=== PATIENT | female | born 1955 | race Caucasian/White ===

== ENCOUNTER 2021-02-19 18:43 | Emergency (ER) | payer MEDICARE, OTHER ==
--- OUTSIDE RECORDS SUMMARY | 2021-02-19 18:45 | EXTERNAL MEDICAL SUMMARY RPT | Continuity of Care Document ---
:1955 Demographics Phone Unavailable Preferred Language Ukrainian Marital Status Unknown Buddhism Affiliation Unknown Race Unknown Ethnic Group Unknown Author Organization [place] Address [address] [phone] Phone Care Team Providers Name Role Phone [place] Unavailable Unavailable Procedures date description facility 20201223 [facility] Vital Signs date measurement value source 20201223 weight_standard 124.74 lb 20201223 weight_metric 56.58 kg 20201223 temperature_standard 96.3 F 20201223 temperature_metric 35.72 C 20201223 respiration_rate 20 /min 20201223 height_standard 68 in 20201223 height_metric 172.72 cm 20201223 heart_rate 72 /min 20201223 BP_systolic 121 mm[Hg] 20201223 BP_diastolic 74 mm[Hg] 20201223 BMI 41.8 kg/m2
--- OUTSIDE RECORDS SUMMARY | 2021-02-19 19:22 | EXTERNAL MEDICAL SUMMARY RPT | Continuity of Care Document ---
:1955 Demographics Phone Unavailable Preferred Language Upper Sorbian Marital Status Unknown Shinto Affiliation Unknown Race Unknown Ethnic Group Unknown Author Organization [place] Address [address] [phone] Phone Care Team Providers Name Role Phone [place] Unavailable Unavailable Procedures date description facility 20201223 [facility] Vital Signs date measurement value source 20201223 weight_standard 124.74 lb 20201223 weight_metric 56.58 kg 20201223 temperature_standard 96.3 F 20201223 temperature_metric 35.72 C 20201223 respiration_rate 20 /min 20201223 height_standard 68 in 20201223 height_metric 172.72 cm 20201223 heart_rate 72 /min 20201223 BP_systolic 121 mm[Hg] 20201223 BP_diastolic 74 mm[Hg] 20201223 BMI 41.8 kg/m2
[2021-02-19 19:27] LABS: BASOPHILS # (AUTO) 0.1 10^3/uL (0.0-0.1); BASOPHILS % (AUTO) 0.7 %; EOSINOPHILS # (AUTO) 0.2 10^3/uL (0.0-0.7); HCT - HEMATOCRIT 38.6 % (37.0-47.0); HGB - HEMOGLOBIN 12.5 g/dL (12.0-16.0); LYMPHOCYTES # (AUTO) 1.9 10^3/uL (1.5-3.5); MEAN CORPUSCULAR HEMOGLOBIN 30.6 pg (27.0-31.0); MEAN CORPUSCULAR HGB CONC 32.4 g/dL (32.0-36.0); MEAN CORPUSCULAR VOLUME 94.6 fL (81.0-99.0); MEAN PLATELET VOLUME 9.5 fL (7.9-10.8); MONOCYTES # (AUTO) 0.6 10^3/uL (0.0-1.0); MONOCYTES % (AUTO) 7.1 %; NEUTROPHILS # (AUTO) 5.8 10^3/uL (1.5-6.6); NEUTROPHILS % (AUTO) 67.6 %; PLT - PLATELET COUNT 255 10^3/uL (130-450); RED BLOOD COUNT 4.08 10^6/uL (4.20-5.40); WHITE BLOOD COUNT 8.6 x10^3/uL (4.8-10.8)
[2021-02-19] MEDS ORDERED: IOVERSOL 320 100 ML VIAL IVP ONE ×2 (19:31→21:19)
--- NOTE | 2021-02-19 19:38 | ED Physician Documentation ---
History of Present Illness - Stated complaint Stated Complaint: FEMALE - Chief complaint Chief Complaint: Abd Pain - Additonal information Additional information: 65-year-old female presents the emergency department for evaluation of 2 weeks constipation. She reports that she last had a bowel movement sometime between 2 and 3 weeks ago. She has the sensation of needing to defecate but is unable to do so. She feels like she wants to did get out with a spoon. She has some generalized abdominal discomfort but no fevers, vomiting. No history of previous constipation. She does take Lyrica for chronic hip pain. Patient has taken Colace, Dulcolax as well as Ex-Lax over the last few days without relief of symptoms. She is also tried increasing her water intake. She has been dieting recently in an effort to lose 50 pounds in order so that she may undergo bilateral hip replacement. However she denies that she has changed her diet in the last 3 months. Reports colonoscopy at 59 years of age without any adventitious findings. Review of Systems Constitutional: denies: Fever, Chills Eyes: reports: Reviewed and negative Ears: reports: Reviewed and negative Nose: reports: Reviewed and negative Throat: reports: Reviewed and negative Cardiac: reports: Reviewed and negative Respiratory: reports: Reviewed and negative GI: reports: Abdominal Pain, Constipation. 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 - Present Medications Home Medications: Ambulatory Orders Medication Instructions Recorded Confirmed Albuterol Sulfate 1.25 mg INH Q4HR PRN 03/09/14 02/19/21 Bupropion HCl [Wellbutrin] 450 mg PO DAILY 03/09/14 02/19/21 Calcium Carb, Citrate/Vit D3 1 tab PO DAILY 03/09/14 02/19/21 [Calcium + D3 ER Tablet] Cetirizine HCl [Zyrtec] 10 mg PO DAILY 03/09/14 02/19/21 Fluticasone [Flonase] 2 spr MARIELLE DAILY 03/09/14 02/19/21 Fluticasone/Salmeterol 100/50 2 puffs INH BID 03/09/14 02/19/21 [Advair 100 Mcg/50 Mcg] Montelukast Sodium [Singulair] 10 mg PO DAILY 03/09/14 02/19/21 Acetaminophen [Aphen] 650 mg PO BID 02/19/21 02/19/21 Amox/Clav 875/125 [Augmentin] 1 each PO Q12H #20 tablet 02/19/21 Aspirin [[place] Aspirin] 81 mg PO DAILY 02/19/21 02/19/21 Flecainide [Tambocar] 50 mg PO BID 02/19/21 02/19/21 Meclizine [Antivert] 12.5 mg PO TID 02/19/21 02/19/21 Omeprazole Magnesium 40 mg PO BID 02/19/21 02/19/21 Pregabalin [Lyrica] 25 mg PO BID 02/19/21 02/19/21 Telmisartan [Micardis] 20 mg PO DAILY 02/19/21 02/19/21 Trazodone HCl 200 mg PO HS 02/19/21 02/19/21 Vortioxetine Hydrobromide 5 mg PO DAILY 02/19/21 02/19/21 [Trintellix] dilTIAZem HCL [Diltiazem 24Hr ER 120 mg PO DAILY 02/19/21 02/19/21 (Xr)] polyethylene glycoL 3350 [Miralax] 17 gm PO DAILY PRN #1 bottle 02/19/21 - Allergies Allergies/Adverse Reactions: Allergies Allergy/AdvReac Type Severity Reaction Status Date / Time Sulfa (Sulfonamide Allergy Respiratory Verified 02/19/21 18:56 Antibiotics) - Social History Does the pt smoke?: No Smoking Status: Never smoker Does the pt drink ETOH?: No Does the pt have substance abuse?: No PD ED PE EXPANDED - General General: Alert, No acute distress, Other (Obese) - Cardiac Cardiac: Regular Rate, Radial strong equal, Pedal strong equal, Cap refill < 2 sec - Respiratory Respiratory: Clear to ausultation jenny. No: Distress, Labored - Abdomen Abdomen: Normal Bowel sounds, Distended. No: Tender to palpation - Rectal Rectal: Normal Tone, Mule Spinner present, Other (Digital rectal exam reveals a large amount of formed hard stool within the vault. Some rectal disimpaction was achieved at the bedside removing about baseball sized amount of stool. This was well-tolerated by patient.) - Derm Derm: Normal color, Warm and dry - Neuro Neuro: Alert and Oriented X 3, CNII-XII intact - GCS Eye Opening: Spontaneous Motor: Obeys Commands Verbal: Oriented Total: 15 Results - Vitals Vitals: Vital Signs - 24 hr 02/19/21 02/19/21 02/19/21 18:52 19:27 21:00 Temperature 36.3 C L 36.6 C Heart Rate 76 70 71 Respiratory 18 16 Rate Blood Pressure 137/63 H 164/84 H 134/98 H O2 Saturation 98 99 98 Oxygen O2 Source Room air - Labs Labs: Laboratory Tests 02/19/21 02/19/21 02/19/21 19:17 19:17 20:40 WBC 8.6 RBC 4.08 L Hgb 12.5 Hct 38.6 MCV 94.6 MCH 30.6 MCHC 32.4 RDW 15.0 Plt Count 255 MPV 9.5 Neut # (Auto) 5.8 Lymph # (Auto) 1.9 [place] # (Auto) 0.6 Eos # (Auto) 0.2 Baso # (Auto) 0.1 Absolute Nucleated RBC 0.00 Nucleated RBC % 0.0 Sodium 140 Potassium 3.6 Chloride 105 Carbon Dioxide 26 Anion Gap 9.0 BUN 17 Creatinine 1.2 H Estimated GFR (MDRD) 45 L Glucose 95 Calcium 9.8 Total Bilirubin 0.7 AST 14 ALT 17 Alkaline Phosphatase 92 Total Protein 7.4 Albumin 4.1 Globulin 3.3 Albumin/Globulin Ratio 1.2 Lipase 18 L Urine Color YELLOW Urine Clarity CLEAR Urine pH 6.0 Ur Specific [place] 1.010 Urine Protein NEGATIVE Urine Glucose (UA) NEGATIVE Urine Ketones NEGATIVE Urine Occult Blood NEGATIVE Urine Nitrite NEGATIVE Urine Bilirubin NEGATIVE Urine Urobilinogen 0.2 (NORMAL) Ur Leukocyte Esterase NEGATIVE Ur Microscopic Review NOT INDICATED Urine Culture Comments NOT INDICATED - Rads (name of study) CT abd Radiology: Final report received (Mild colonic wall thickening in the rect osigmoid colon compatible with a nonspecific proctocolitis) PD MEDICAL DECISION MAKING - ED course Complexity details: reviewed results, re-evaluated patient, considered differential, d/w patient, d/w family ED course: 65-year-old female presents the emergency department for evaluation of 2 weeks constipation. This is sudden onset not associated with fevers focal abdominal pain or vomiting. At the bedside I did do a digital rectal exam and was able to disimpact a baseball sized amount of stool. Screening labs show no acute worrisome abnormalities. A CT of her abdomen was completed and it does suggest rectal proctocolitis. For this reason she will be started on a course of Augmentin. For her constipation she was given an enema in the emergency department with little relief of symptoms. I will write a prescription for MiraLAX and recommend that she take 2-3 times daily until she has 4-5 watery stools. I have advised very close follow-up with her primary care doctor. She should be referred for repeat colonoscopy for further evaluation of the new onset constipation. Clinically she is not have an exam consistent with a bowel obstruction. Emergent return precautions were discussed. Departure - Departure Disposition: Home, Self Care Clinical Impression: Proctocolitis Constipation Qualifiers: Constipation type: other constipation type Qualified Code(s): K59.09 - Other constipation Condition: Stable Record reviewed to determine appropriate education?: Yes Instructions: ED Constipation Follow-Up: Provider,Other [Primary Care Provider] - Prescriptions: Amox/Clav 875/125 [Augmentin] 1 each PO Q12H #20 tablet polyethylene glycoL 3350 [Miralax] 17 gm PO DAILY PRN #1 bottle PRN Reason: Constipation Comments: Tete you were seen in the emergency department today for evaluation of constipation in which she reported no bowel movement for about 2 weeks. Your screening labs are all essentially unremarkable. We did do a CAT scan of your abdomen and it does show some colonic wall thickening that may be early colitis. For this reason I would like you to fill the prescription for the Augmentin and begin taking twice daily. For your constipation I recommend that you take the MiraLAX twice daily until you have 3-5 watery stools. Although the CAT scan did not show any obvious reason for your constipation acute constipation like this is unusual. I do recommend that you increase your water intake however it is important that you discuss this ED visit with your primary care provider. You should be referred for a repeat colonoscopy to make sure that there is nothing within the colon causing the constipation that we did not see on CAT scan. Please return to the emergency department if the MiraLAX fails to produce a bowel movement over the next 4 to 5 days, you develop any fevers, uncontrolled vomiting or suddenly severe abdominal pain
[2021-02-19 19:39] LABS: ALBUMIN 4.1 g/dL (3.2-5.5); ALBUMIN/GLOBULIN RATIO 1.2 (1.0-2.2); BILIRUBIN,TOTAL 0.7 mg/dL (0.2-1.0); CALCIUM 9.8 mg/dL (8.5-10.3); CREATININE 1.2 mg/dL (0.4-1.0); POTASSIUM 3.6 mmol/L (3.5-5.0); TOTAL PROTEIN 7.4 g/dL (6.7-8.2)
[2021-02-19 20:52] LABS: BILIRUBIN,URINE NEGATIVE (NEGATIVE); CLARITY,URINE CLEAR (CLEAR); GLUCOSE, URINE (UA) NEGATIVE (NEGATIVE); KETONES,URINE (UA) NEGATIVE (NEGATIVE); LEUKOCYTE ESTERASE, URINE NEGATIVE (NEGATIVE); NITRITE,URINE NEGATIVE (NEGATIVE); OCCULT BLOOD,URINE NEGATIVE (NEGATIVE); PROTEIN,URINE NEGATIVE (NEGATIVE); UROBILINOGEN,URINE 0.2 (NORMAL) E.U./dL (NORMAL)
[2021-02-19] MEDS ORDERED: MINERAL OIL ENEMA 133 ML BOTTLE RC STA (20:55)
--- NOTE | 2021-02-19 21:10 | CT Report ---
PROCEDURE: Abdomen/Pelvis W INDICATIONS: Abdominal pain, acute, nonlocalized CONTRAST: IV CONTRAST: Optiray 320 ml: 100 PO CONTRAST: *NO PO CONTRAST TECHNIQUE: After the administration of intravenous contrast, 5 mm thick sections acquired from the diaphragms to the symphysis. 5 mm thick coronal and sagittal reformats were acquired. For radiation dose reducti on, the following was used: automated exposure control, adjustment of mA and/or kV according to ben ent size. COMPARISON: None. FINDINGS: Image quality: Excellent. ABDOMEN: Lung bases: There is mild dependent atelectasis. Heart size is normal. Solid organs: Evaluation of the liver demonstrates no focal hepatic lesions. Gallbladder is surgical ly absent. Biliary system is non dilated. The spleen is normal in size. No peripancreatic fat strand ing or fluid collections. No adrenal nodules. Kidneys demonstrate no hydronephrosis. Peritoneum and bowel: Small bowel loops demonstrate normal wall thickness and caliber. No pericecal inflammatory changes to suggest appendicitis. There is mild wall thickening in the rectosigmoid colon with minimal pericolonic fat stranding. No free fluid or air. Nodes and vessels: No retroperitoneal or mesenteric adenopathy by size criteria. Aorta and inferior vena cava are normal in size. Miscellaneous: No ventral hernias. PELVIS: Genitourinary: Bladder wall thickness is normal. The uterus is surgically absent. Miscellaneous: No inguinal hernias or adenopathy. Bones: No suspicious bony lesions. No vertebral body compression fractures. IMPRESSION: 1. Mild colonic wall thickening in the rectal sigmoid colon compatible with a nonspecific proctocolit is. Reviewed by: Broyd Kowalski MD on 02/19/2021 9:09 PM PDT Approved by: Brody Kowalski MD on 02/19/2021 9:09 PM PDT Station ID: [id number]
[2021-02-19 21:13] VITALS: BP 134/98
== END 2021-02-19 22:10 | disposition home or self-care (01) ==
LOC: ED 18:43
DX: K52.9 Noninfective gastroenteritis and colitis, unspecified (principal); K59.09 Other constipation
CPT/HCPCS: 36415; 74177; 80053; 81003; 83690; 85025; 99284; A9270; Q9967; 81001; 87086

== ENCOUNTER 2021-02-24 10:37 | Emergency (ER) | payer MEDICARE, OTHER ==
--- OUTSIDE RECORDS SUMMARY | 2021-02-24 10:40 | EXTERNAL MEDICAL SUMMARY RPT | Continuity of Care Document ---
:1955 Demographics Phone Unavailable Preferred Language Maltese Marital Status Unknown Taoist Affiliation Unknown Race Unknown Ethnic Group Unknown Author Organization [place] Address [address] [phone] Phone Care Team Providers Name Role Phone [place] Unavailable Unavailable Procedures date description facility 20201223 [facility] Vital Signs date measurement value source 20201223 weight_standard 124.74 lb 20201223 weight_metric 56.58 kg 20201223 temperature_standard 96.3 F 20201223 temperature_metric 35.72 C 20201223 respiration_rate 20 /min 20201223 height_standard 68 in 20201223 height_metric 172.72 cm 20201223 heart_rate 72 /min 20201223 BP_systolic 121 mm[Hg] 20201223 BP_diastolic 74 mm[Hg] 20201223 BMI 41.8 kg/m2
[2021-02-24 11:01] VITALS: BP 123/62
--- OUTSIDE RECORDS SUMMARY | 2021-02-24 11:18 | EXTERNAL MEDICAL SUMMARY RPT | Continuity of Care Document ---
:1955 Demographics Phone Unavailable Preferred Language Kazakh Marital Status Unknown Confucianist Affiliation Unknown Race Unknown Ethnic Group Unknown Author Organization [place] Address [address] [phone] Phone Care Team Providers Name Role Phone Luois Luu Unavailable Unavailable Procedures date description facility 20201223 [facility] Vital Signs date measurement value source 20201223 weight_standard 124.74 lb 20201223 weight_metric 56.58 kg 20201223 temperature_standard 96.3 F 20201223 temperature_metric 35.72 C 20201223 respiration_rate 20 /min 20201223 height_standard 68 in 20201223 height_metric 172.72 cm 20201223 heart_rate 72 /min 20201223 BP_systolic 121 mm[Hg] 20201223 BP_diastolic 74 mm[Hg] 20201223 BMI 41.8 kg/m2
[2021-02-24 11:41] LABS: BASOPHILS % (AUTO) 0.5 %; EOSINOPHILS # (AUTO) 0.1 10^3/uL (0.0-0.7); EOSINOPHILS % (AUTO) 1.7 %; HCT - HEMATOCRIT 41.2 % (37.0-47.0); LYMPHOCYTES # (AUTO) 1.2 10^3/uL (1.5-3.5); LYMPHOCYTES % (AUTO) 20.1 %; MEAN CORPUSCULAR HEMOGLOBIN 30.2 pg (27.0-31.0); MEAN CORPUSCULAR HGB CONC 31.6 g/dL (32.0-36.0); MEAN CORPUSCULAR VOLUME 95.6 fL (81.0-99.0); MEAN PLATELET VOLUME 9.4 fL (7.9-10.8); MONOCYTES # (AUTO) 0.5 10^3/uL (0.0-1.0); MONOCYTES % (AUTO) 7.8 %; NEUTROPHILS # (AUTO) 4.1 10^3/uL (1.5-6.6); NEUTROPHILS % (AUTO) 69.4 %; PLT - PLATELET COUNT 241 10^3/uL (130-450); RED BLOOD COUNT 4.31 10^6/uL (4.20-5.40); WHITE BLOOD COUNT 5.9 x10^3/uL (4.8-10.8)
[2021-02-24 11:54] LABS: ALBUMIN 4.2 g/dL (3.2-5.5); ALBUMIN/GLOBULIN RATIO 1.4 (1.0-2.2); BILIRUBIN,TOTAL 0.5 mg/dL (0.2-1.0); CALCIUM 10.2 mg/dL (8.5-10.3); CREATININE 1.1 mg/dL (0.4-1.0); POTASSIUM 4.3 mmol/L (3.5-5.0); TOTAL PROTEIN 7.3 g/dL (6.7-8.2)
[2021-02-24 12:31] LABS: BILIRUBIN,URINE NEGATIVE (NEGATIVE); GLUCOSE, URINE (UA) NEGATIVE (NEGATIVE); KETONES,URINE (UA) NEGATIVE (NEGATIVE); LEUKOCYTE ESTERASE, URINE NEGATIVE (NEGATIVE); NITRITE,URINE NEGATIVE (NEGATIVE); OCCULT BLOOD,URINE NEGATIVE (NEGATIVE); PH,URINE 6.5 PH (5.0-7.5); PROTEIN,URINE NEGATIVE (NEGATIVE); UROBILINOGEN,URINE 0.2 (NORMAL) E.U./dL (NORMAL)
[2021-02-24 12:37] LABS: CLARITY,URINE CLEAR (CLEAR)
[2021-02-24] MEDS ORDERED: SALINE ENEMA 133 ML BOTTLE RC STA (12:50)
--- NOTE | 2021-02-24 13:01 | ED Physician Documentation ---
History of Present Illness - Stated complaint Stated Complaint: FEMALE - Chief complaint Chief Complaint: Abd Pain - Additonal information Additional information: 65-year-old female presents to the emergency department for evaluation of pe rsistent constipation. I saw her on the of this month in which she had reported no bowel movement for nearly 2 weeks. At that time of initial exam I did do a digital rectal exam and did disimpact a baseball sized amount of hard stool. Subsequent labs and imaging did not reveal any significant worrisome abnormalities. I recommended twice daily MiraLAX and follow-up with primary care doctor. Her appointment is scheduled now for 07 March. Since being discharged she reports that she is drink a bottle of magnesium citrate as well as taking MiraLAX twice daily and has had only one small hard bowel movement the day after being seen in the ER. She has had no fevers no vomiting. She has some abdominal discomfort but no focal pain. pt was started on lyrica february 04 for chronic hip pain. pt of dr. hill Review of Systems Constitutional: denies: Fever, Chills Eyes: reports: Reviewed and negative Nose: reports: Reviewed and negative Throat: reports: Reviewed and negative Cardiac: reports: Reviewed and negative Respiratory: reports: Reviewed and negative GI: reports: Constipation. 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 - Present Medications Home Medications: Ambulatory Orders Medication Instructions Recorded Confirmed Albuterol Sulfate 1.25 mg INH Q4HR PRN 03/09/14 02/19/21 Bupropion HCl [Wellbutrin] 450 mg PO DAILY 03/09/14 02/19/21 Calcium Carb, Citrate/Vit D3 1 tab PO DAILY 03/09/14 02/19/21 [Calcium + D3 ER Tablet] Cetirizine HCl [Zyrtec] 10 mg PO DAILY 03/09/14 02/19/21 Fluticasone [Flonase] 2 spr MARIELLE DAILY 03/09/14 02/19/21 Fluticasone/Salmeterol 100/50 2 puffs INH BID 03/09/14 02/19/21 [Advair 100 Mcg/50 Mcg] Montelukast Sodium [Singulair] 10 mg PO DAILY 03/09/14 02/19/21 Acetaminophen [Aphen] 650 mg PO BID 02/19/21 02/19/21 Amox/Clav 875/125 [Augmentin] 1 each PO Q12H #20 tablet 02/19/21 Aspirin [[place] Aspirin] 81 mg PO DAILY 02/19/21 02/19/21 Flecainide [Tambocar] 50 mg PO BID 02/19/21 02/19/21 Meclizine [Antivert] 12.5 mg PO TID 02/19/21 02/19/21 Omeprazole Magnesium 40 mg PO BID 02/19/21 02/19/21 Pregabalin [Lyrica] 25 mg PO BID 02/19/21 02/19/21 Telmisartan [Micardis] 20 mg PO DAILY 02/19/21 02/19/21 Trazodone HCl 200 mg PO HS 02/19/21 02/19/21 Vortioxetine Hydrobromide 5 mg PO DAILY 02/19/21 02/19/21 [Trintellix] dilTIAZem HCL [Diltiazem 24Hr ER 120 mg PO DAILY 02/19/21 02/19/21 (Xr)] polyethylene glycoL 3350 [Miralax] 17 gm PO DAILY PRN #1 bottle 02/19/21 Peg 3350/Na Sulf,Bicarb,Cl/KCl 4,000 ml PO ONCE 1 Days #1 each 02/24/21 [Golytely] - Allergies Allergies/Adverse Reactions: Allergies Allergy/AdvReac Type Severity Reaction Status Date / Time Sulfa (Sulfonamide Allergy Respiratory Verified 02/24/21 11:01 Antibiotics) - Social History Does the pt smoke?: No Smoking Status: Never smoker Does the pt drink ETOH?: No Does the pt have substance abuse?: No PD ED PE EXPANDED - General General: Alert, No acute distress, Well developed/nourished - Cardiac Cardiac: Regular Rate, Radial strong equal, Pedal strong equal, Cap refill < 2 sec - Respiratory Respiratory: Clear to ausultation jenny. No: Distress, Labored - Abdomen Abdomen: Normal Bowel sounds, Tender to palpation (Mild nonfocal generalized tenderness to the abdomen.). No: Suprapubic - Rectal Rectal: Normal Tone (Digital rectal exam reveals no palpable stool in the rectal vault. Generally nontender exam.) - Back Back: Normal exam - Neuro Neuro: Alert and Oriented X 3, CNII-XII intact - GCS Eye Opening: Spontaneous Motor: Obeys Commands Verbal: Oriented Total: 15 - Psych Psych: Normal Results - Vitals Vitals: Vital Signs - 24 hr 02/24/21 10:57 Temperature 36.5 C Heart Rate 80 Respiratory 17 Rate Blood Pressure 123/62 O2 Saturation 99 Oxygen O2 Source Room air - Labs Labs: Laboratory Tests 02/24/21 02/24/21 02/24/21 11:40 11:40 11:40 WBC 5.9 RBC 4.31 Hgb 13.0 Hct 41.2 MCV 95.6 MCH 30.2 MCHC 31.6 L RDW 15.0 Plt Count 241 MPV 9.4 Neut # (Auto) 4.1 Lymph # (Auto) 1.2 L [place] # (Auto) 0.5 Eos # (Auto) 0.1 Baso # (Auto) 0.0 Absolute Nucleated RBC 0.00 Nucleated RBC % 0.0 Sodium 140 Potassium 4.3 Chloride 101 Carbon Dioxide 29 Anion Gap 10.0 BUN 10 Creatinine 1.1 H Estimated GFR (MDRD) 50 L Glucose 104 H Lactic Acid 0.9 Calcium 10.2 Total Bilirubin 0.5 AST 14 ALT 17 Alkaline Phosphatase 98 Total Protein 7.3 Albumin 4.2 Globulin 3.1 Albumin/Globulin Ratio 1.4 Lipase 19 L Urine Color Urine Clarity Urine pH Ur Specific [place] Urine Protein Urine Glucose (UA) Urine Ketones Urine Occult Blood Urine Nitrite Urine Bilirubin Urine Urobilinogen Ur Leukocyte Esterase Ur Microscopic Review Urine Culture Comments 02/24/21 11:45 WBC RBC Hgb Hct MCV MCH MCHC RDW Plt Count MPV Neut # (Auto) Lymph # (Auto) [place] # (Auto) Eos # (Auto) Baso # (Auto) Absolute Nucleated RBC Nucleated RBC % Sodium Potassium Chloride Carbon Dioxide Anion Gap BUN Creatinine Estimated GFR (MDRD) Glucose Lactic Acid Calcium Total Bilirubin AST ALT Alkaline Phosphatase Total Protein Albumin Globulin Albumin/Globulin Ratio Lipase Urine Color YELLOW Urine Clarity CLEAR Urine pH 6.5 Ur Specific [place] 1.010 Urine Protein NEGATIVE Urine Glucose (UA) NEGATIVE Urine Ketones NEGATIVE Urine Occult Blood NEGATIVE Urine Nitrite NEGATIVE Urine Bilirubin NEGATIVE Urine Urobilinogen 0.2 (NORMAL) Ur Leukocyte Esterase NEGATIVE Ur Microscopic Review NOT INDICATED Urine Culture Comments NOT INDICATED PD MEDICAL DECISION MAKING - ED course Complexity details: reviewed results, re-evaluated patient, d/w patient, d/w family ED course: 65-year-old female presents the emergency department for evaluation of chronic constipation that began about 3 weeks ago now. This is in the setting of recently beginning a new medication Lyrica for chronic hip pain. I saw this patient for similar 5 days ago screening labs and CT at that scan did not reveal obstipation. There was a concern for proctocolitis and she was started on Augmentin. Despite taking magnesium citrate as well as MiraLAX twice daily she has had only 1 small bowel movement. She has no fevers or vomiting. Screening labs today reveal no acute worrisome abnormalities. Digital rectal exam did not reveal any stool within the vault. I do suspect at this time that the cause of her worsening constipation is likely the Lyrica that she is prescribed for her chronic hip pain. Patient was given a saline fleets enema here in the emergency department and I will prescribe gallon of GoLYTELY prep at home. She is to continue follow-up with her primary care provider and discuss with worsening constipation with Dr. Clement. Alternative forms of pain management may be indicated. Emergent worsen return precautions were discussed for fevers, suddenly severe abdominal pain melena, or uncontrolled vomiting. Departure - Departure Disposition: 01 Home, Self Care Clinical Impression: Constipation Qualifiers: Constipation type: other constipation type Qualified Code(s): K59.09 - Other constipation Condition: Stable Record reviewed to determine appropriate education?: Yes Instructions: ED Constipation Follow-Up: Rosie Ramirez MD [Physician No Access] - Prescriptions: Peg 3350/Na Sulf,Bicarb,Cl/KCl [Golytely] 4,000 ml PO ONCE 1 Days #1 each Comments: Tete you were seen in the emergency department today for constipation. As we discussed I suspect that the cause your constipation is likely the Lyrica which he began taking for your chronic hip pain. This is a common side effect with Lyrica. In order to help promote healthy bowel movement I have prescribed GoLYTELY and the dose that is typically given to people before they have a colonoscopy. You may benefit from speaking with Dr. Joel about changing your pain management medications or abstaining from the Lyrica for a few days. Reasons to return to the emergency department would include fevers, uncontrolled vomiting, suddenly severe or different abdominal pain or any black or bloody stools.
== END 2021-02-24 14:08 | disposition home or self-care (01) ==
LOC: ED 10:37
DX: K59.09 Other constipation (principal); R10.817 Generalized abdominal tenderness; M25.559 Pain in unspecified hip; G89.29 Other chronic pain; Z79.899 Other long term (current) drug therapy; Z79.82 Long term (current) use of aspirin
CPT/HCPCS: 36415; 80053; 81003; 83605; 83690; 85025; 99283; 99284; A9270; 81001; 87086

== ENCOUNTER 2022-02-05 08:00 | Outpatient (CLI) | payer MEDICARE, OTHER ==
[2022-02-05 20:39] LABS: BILIRUBIN,URINE NEGATIVE (NEGATIVE); GLUCOSE, URINE (UA) NEGATIVE (NEGATIVE); KETONES,URINE (UA) NEGATIVE (NEGATIVE); LEUKOCYTE ESTERASE, URINE TRACE (NEGATIVE); NITRITE,URINE POSITIVE (NEGATIVE); OCCULT BLOOD,URINE NEGATIVE (NEGATIVE); PROTEIN,URINE NEGATIVE (NEGATIVE); UROBILINOGEN,URINE 0.2 (NORMAL) E.U./dL (NORMAL)
[2022-02-05 20:40] LABS: CLARITY,URINE HAZY (CLEAR)
[2022-02-05 21:06] LABS: BACTERIA,URINE Many /HPF (None Seen); RBC,URINE 0-5 /HPF (0-5); SQUAMOUS EPITHELIAL CELL,UR FEW Squamous (<= Few); WBC,URINE >25 /HPF (0-5)
[2022-02-05 21:07] LABS: CRYSTALS,URINE 11-25 Ca Oxalate /LPF
== END 2022-02-05 23:59 | disposition home or self-care (01) ==
LOC: LAB.N 08:00
PROVIDERS: ATTEND Physician Assistant
DX: N39.0 Urinary tract infection, site not specified (principal)
CPT/HCPCS: 81001; 87077; 87086; 87181

== ENCOUNTER 2023-12-31 12:51 | Emergency (ER) | payer MEDICARE, OTHER ==
[2023-12-31 13:18] LABS: BILIRUBIN,URINE MODERATE (NEGATIVE); CLARITY,URINE SL. CLOUDY (CLEAR); GLUCOSE, URINE (UA) NEGATIVE (NEGATIVE); KETONES,URINE (UA) 40 mg/dL (NEGATIVE); LEUKOCYTE ESTERASE, URINE NEGATIVE (NEGATIVE); NITRITE,URINE NEGATIVE (NEGATIVE); OCCULT BLOOD,URINE NEGATIVE (NEGATIVE); PROTEIN,URINE 30 mg/dL (NEGATIVE); UROBILINOGEN,URINE 1 (NORMAL) E.U./dL (NORMAL)
[2023-12-31 13:42] LABS: BACTERIA,URINE Moderate /HPF (None Seen); RBC,URINE None Seen /HPF (0-5); SQUAMOUS EPITHELIAL CELL,UR MANY Squamous (<= Few)
[2023-12-31] MEDS: KETOROLAC 30 MG/ML VIAL IVP STA (13:55)
[2023-12-31 14:01] LABS: BASOPHILS # (AUTO) 0.1 10^3/uL (0.0-0.1); BASOPHILS % (AUTO) 0.5 %; EOSINOPHILS # (AUTO) 0.2 10^3/uL (0.0-0.7); EOSINOPHILS % (AUTO) 2.1 %; HCT - HEMATOCRIT 37.1 % (37.0-47.0); HGB - HEMOGLOBIN 11.7 g/dL (12.0-16.0); LYMPHOCYTES # (AUTO) 1.7 10^3/uL (1.5-3.5); LYMPHOCYTES % (AUTO) 14.9 %; MEAN CORPUSCULAR HEMOGLOBIN 30.5 pg (27.0-31.0); MEAN CORPUSCULAR HGB CONC 31.5 g/dL (32.0-36.0); MEAN CORPUSCULAR VOLUME 96.6 fL (81.0-99.0); MEAN PLATELET VOLUME 9.6 fL (7.9-10.8); MONOCYTES # (AUTO) 0.9 10^3/uL (0.0-1.0); MONOCYTES % (AUTO) 7.9 %; NEUTROPHILS # (AUTO) 8.5 10^3/uL (1.5-6.6); NEUTROPHILS % (AUTO) 74.2 %; PLT - PLATELET COUNT 173 10^3/uL (130-450); RED BLOOD COUNT 3.84 10^6/uL (4.20-5.40); RED CELL DISTRIBUTION WIDTH 13.1 % (12.0-15.0); WHITE BLOOD COUNT 11.4 x10^3/uL (4.8-10.8)
[2023-12-31 14:14] LABS: ALBUMIN 3.6 g/dL (3.2-5.5); ALBUMIN/GLOBULIN RATIO 1.6 (1.0-2.2); ALKALINE PHOSPHATASE 59 IU/L (42-121); ALT ALANINE AMINOTRANSFERASE 5 IU/L (10-60); AST ASPARTATE AMINOTRANSFERASE 8 IU/L (10-42); BILIRUBIN,TOTAL 0.7 mg/dL (0.2-1.0); BUN - BLOOD UREA NITROGEN 13 mg/dL (6-20); CALCIUM 9.8 mg/dL (8.5-10.3); CARBON DIOXIDE - CO2 25 mmol/L (21-32); CHLORIDE 103 mmol/L (101-111); CREATININE 0.8 mg/dL (0.6-1.3); GFR - MDRD 71 (>89); GLUCOSE 93 mg/dL (74-104); LIPASE < 10 U/L (11-82); POTASSIUM 3.7 mmol/L (3.5-4.5); SODIUM 135 mmol/L (135-145); TOTAL PROTEIN 5.9 g/dL (6.4-8.9)
[2023-12-31] MEDS ORDERED: iohexoL-300 100 ML VIAL ONE (14:19)
[2023-12-31] MEDS: SODIUM CHLORIDE 0.9% 1,000 ML IV STA (14:40)
[2023-12-31] MEDS: iohexoL-300 100 ML VIAL IVP ONE (14:43)
--- NOTE | 2023-12-31 14:46 | ED Physician Documentation ---
PD HPI ABD PAIN - Stated complaint Stated Complaint: ABD PX,N/V/D - Chief complaint Chief Complaint: Abd Pain - History obtained from History obtained from: Patient, Family - History of Present Illness Timing - onset: How many weeks ago (3) Timing - duration: Weeks (3) Timing - details: Gradual onset, Still present, Waxing and waning Quality: Cramping, Pain Location: Periumbilical, RLQ, LLQ Improved by: Laying still Worsened by: Moving, Position, Palpation Associated symptoms: Nausea, Vomiting, Diarrhea Similar symptoms before: No diagnosis Recently seen: Not recently seen - Additional information Additional information: Tete Ridley is a 68-year-old female who has developed diarrhea that lasted about 1 week last month. She has subsequently had a return of her diarrhea and this has been now present for as long as 3 weeks. She is having worse symptoms over the past week and she has developed some vomiting as well. She is having some lower abdominal cramping pain and she denies any rectal pain she denies any rectal bleeding or trouble with wiping. She has not had the symptoms previously. She has not had fever. Review of Systems Constitutional: reports: Myalgias, Fatigue, Sweats. denies: Fever Eyes: denies: Decreased vision Ears: denies: Ear pain Nose: denies: Rhinorrhea / runny nose, Congestion Throat: denies: Sore throat Cardiac: denies: Chest pain / pressure, Palpitations Respiratory: denies: Dyspnea, Cough GI: reports: Abdominal Pain, Nausea, Vomiting, Diarrhea : denies: Dysuria, Frequency Skin: denies: Rash Musculoskeletal: denies: Neck pain, Back pain, Extremity pain Neurologic: reports: Generalized weakness. 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 - Present Medications Home Medications: Ambulatory Orders Medication Instructions Recorded Confirmed Albuterol Sulfate 1.25 mg INH Q4HR PRN 03/09/14 02/19/21 Bupropion HCl [Wellbutrin] 450 mg PO DAILY 03/09/14 02/19/21 Calcium Carb, Citrate/Vit D3 1 tab PO DAILY 03/09/14 02/19/21 [Calcium + D3 ER Tablet] Cetirizine HCl [Zyrtec] 10 mg PO DAILY 03/09/14 02/19/21 Fluticasone [Flonase] 2 spr MARIELLE DAILY 03/09/14 02/19/21 Fluticasone/Salmeterol 100/50 2 puffs INH BID 03/09/14 02/19/21 [Advair 100 Mcg/50 Mcg] Montelukast Sodium [Singulair] 10 mg PO DAILY 03/09/14 02/19/21 Acetaminophen [Aphen] 650 mg PO BID 02/19/21 02/19/21 Amox/Clav 875/125 [Augmentin] 1 each PO Q12H #20 tablet 02/19/21 Aspirin [Maury Aspirin] 81 mg PO DAILY 02/19/21 02/19/21 Flecainide [Tambocar] 50 mg PO BID 02/19/21 02/19/21 Meclizine [Antivert] 12.5 mg PO TID 02/19/21 02/19/21 Omeprazole Magnesium 40 mg PO BID 02/19/21 02/19/21 Pregabalin [Lyrica] 25 mg PO BID 02/19/21 02/19/21 Telmisartan [Micardis] 20 mg PO DAILY 02/19/21 02/19/21 Trazodone HCl 200 mg PO HS 02/19/21 02/19/21 Vortioxetine Hydrobromide 5 mg PO DAILY 02/19/21 02/19/21 [Trintellix] dilTIAZem HCL [Diltiazem 24Hr ER 120 mg PO DAILY 02/19/21 02/19/21 (Xr)] polyethylene glycoL 3350(BULK) 17 gm PO DAILY PRN #1 bottle 02/19/21 [Miralax] Peg 3350/Na Sulf,Bicarb,Cl/KCl 4,000 ml PO ONCE 1 Days #1 each 02/24/21 [Golytely] Ciprofloxacin HCl [Cipro] 500 mg PO BID #14 tablet 12/31/23 HYDROcod/ACETAM 5/325 [[place] 5/325] 1 - 2 tablet PO Q6H PRN #14 tablet 12/31/23 metroNIDAZOLE [Flagyl] 500 mg PO BID 7 Days #14 tablet 12/31/23 - Allergies Allergies/Adverse Reactions: Allergies Allergy/AdvReac Type Severity Reaction Status Date / Time Sulfa (Sulfonamide Allergy Respiratory Verified 12/31/23 12:59 Antibiotics) - Social History Does the pt smoke?: No Smoking Status: Never smoker Does the pt drink ETOH?: No Does the pt have substance abuse?: No PD ED PE NORMAL - Vitals Vital signs reviewed: Yes (normal ) - General General: Alert and oriented X 3, No acute distress, Well developed/nourished - HEENT HEENT: Atraumatic, PERRL, Other (apears dry with dry mucous membranes and dry skin to the face.) - Neck Neck: Supple, no meningeal sign, No bony TTP - Cardiac Cardiac: RRR, No murmur - Respiratory Respiratory: No respiratory distress, Clear bilaterally - Abdomen Abdomen: Normal bowel sounds, Soft, Non distended, No organomegaly, Other (tender to mid and lower abdomen without garding. No referred tenderenss. 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, No motor deficit, No sensory deficit, Normal speech Eye Opening: Spontaneous Motor: Obeys Commands Verbal: Oriented GCS Score: 15 - Psych Psych: Normal mood, Normal affect Results - Vitals Vitals: Vital Signs - 24 hr 12/31/23 12/31/23 12/31/23 12:53 15:10 15:41 Temperature 36.5 C Heart Rate 68 60 63 Respiratory 16 16 18 Rate Blood Pressure 111/68 120/85 H 130/68 O2 Saturation 97 100 98 Oxygen O2 Source Room air - Labs Labs: Laboratory Tests 12/31/23 12/31/23 12/31/23 13:07 13:49 13:49 WBC 11.4 H RBC 3.84 L Hgb 11.7 L Hct 37.1 MCV 96.6 MCH 30.5 MCHC 31.5 L RDW 13.1 Plt Count 173 MPV 9.6 Neut # (Auto) 8.5 H Lymph # (Auto) 1.7 [place] # (Auto) 0.9 Eos # (Auto) 0.2 Baso # (Auto) 0.1 Absolute Nucleated RBC 0.00 Nucleated RBC % 0.0 Sodium 135 Potassium 3.7 Chloride 103 Carbon Dioxide 25 Anion Gap 7.0 BUN 13 Creatinine 0.8 Estimated GFR (MDRD) 71 L Glucose 93 Calcium 9.8 Total Bilirubin 0.7 AST 8 L ALT 5 L Alkaline Phosphatase 59 Total Protein 5.9 L Albumin 3.6 Globulin 2.3 Albumin/Globulin Ratio 1.6 Lipase < 10 L Urine Color YELLOW Urine Clarity SL. CLOUDY Urine pH 6.0 Ur Specific [place] >=1.030 H Urine Protein 30 H Urine Glucose (UA) NEGATIVE Urine Ketones 40 H Urine Occult Blood NEGATIVE Urine Nitrite NEGATIVE Urine Bilirubin MODERATE H Urine Urobilinogen 1 (NORMAL) Ur Leukocyte Esterase NEGATIVE Urine RBC None Seen Urine WBC 6-10 H Ur Squamous Epith Cells MANY Squamous H Urine Bacteria Moderate H Ur Microscopic Review INDICATED Urine Culture Comments NOT INDICATED - Rads (name of study) CT ab/pel with Relevant Findings:: Prelim report reviewed (Impression: 1. Findings concerning for sigmoid colitis and proctitis. Early perirectal abscess collection cannot be entirely excluded. Clinical correlation is recommended. No discrete drainable abscess collection. No peritoneal free fluid or free air.), EMP independent interpretation of test PD Medical Decision Making - ED course Complexity details: reviewed old records, reviewed results, re-evaluated patient, considered differential, d/w patient, d/w family Reviewed Lab Results: We reviewed a complete blood count showing a white blood cell count elevated 11.4 the hematocrit was normal at 37.1 hemoglobin low at 11.7 platelets normal at 173 the prior hemoglobin 3 years ago was 13. Chemistry showed normal electrolytes normal kidney and liver function. Urinalysis shows a specific gravity 1.030 there is protein and ketones moderate bilirubin it is negative for leukocyte esterase or nitrite. There are many squamous and moderate bacteria the specimen does not meet the grade for culture.I interpreted these laboratory studies to indicate the likelihood of an infection with an elevated white blood cell count and concentrated urine indicating the likelihood of dehydration. ED course: Tete Ridley is a 68-year-old female who complains of a 2-week history of diarrhea and abdominal pain that has not resolved. There is no blood in the stool that is visible to the patient. We were not able to obtain a specimen in the emergency department. The patient has some generalized abdominal pain and CT scan of the abdomen pelvis was obtained which demonstrated the presence of a colitis. The patient denies any pain in the rectum or problems with wiping Making the possibility of a perirectal abscess less likely.Here in the emergency department she is hydrated with saline and administered Toradol with some improvement in her pain. We will place the patient on a course of Cipro and Flagyl and provide some pain relief. The expectation with treatment is improvement over this week. Departure - Departure Disposition: 01 Home, Self Care Clinical Impression: Colitis Condition: Stable Instructions: ED Gastroenteritis Bacterial Follow-Up: Your, doctor [Other] Prescriptions: Ciprofloxacin HCl [Cipro] 500 mg PO BID #14 tablet metroNIDAZOLE [Flagyl] 500 mg PO BID 7 Days #14 tablet HYDROcod/ACETAM 5/325 [[place] 5/325] 1 - 2 tablet PO Q6H PRN #14 tablet PRN Reason: Pain Comments: Tete, today it looks like you have a colitis and we are treating this with 2 antibiotics and some pain medication. I have E scribed some Cipro and Flagyl as well as some [place] to [facility] in [place]. Our expectations with treatment is slow and steady improvement over the next 1 to 3 days. If you have worsening of your symptoms with worsening pain, develop bleeding, or worsening diarrhea, return to the emergency department for further evaluation. Forms: PCP List
--- NOTE | 2023-12-31 15:11 | CT Report ---
PROCEDURE: Abdomen/Pelvis W INDICATIONS: central abd pain X 2 wks diarrhea CONTRAST: 100ml omni 300 TECHNIQUE: After the administration of intravenous contrast, a CT scan of the abdomen and pelvis was performed. Images were recorded and evaluated at appropriate window settings. Reformats: coronal and sagittal. F or radiation dose reduction, the following was used: automated exposure control, adjustment of mA and /or kV according to patient size. COMPARISON: 02/19/2021. FINDINGS: Image quality: Diagnostic. Lower chest: Unremarkable. Liver: No solid mass. Gallbladder and biliary tree: Surgically absent. No biliary dilation, accounting for post-cholecystec charlee state. Spleen: No splenomegaly. Pancreas: No pancreatic ductal dilation. Adrenals: No adrenal nodule. Kidneys and ureters: No hydronephrosis. No renal cystic lesion which requires follow up. No solid mas s. Stomach, bowel and peritoneum: There is no bowel obstruction. Wall thickening and edema involving dis janett descending colon and sigmoid colon is seen extending to the level of rectum with diffuse rectal w all thickening. No discrete drainable abscess collection is seen. Subtle hypodensity and perineal rec janett/perianal region, early abscess collection cannot be entirely excluded. No free fluid of free air. Lymph nodes: No central or retroperitoneal adenopathy. Vessels: No infrarenal aortic aneurysm. PELVIS Reproductive organs: Unremarkable. Bladder: No abnormal wall thickening, accounting for underdistention. Pelvic lymph nodes: No pelvic adenopathy by size criteria. Bones: No aggressive osseous abnormality. Other: No significant ventral or inguinal hernia. IMPRESSION: 1. Finding is concerning for sigmoid colitis and proctitis. Early perirectal abscess collection canno t be entirely excluded. Clinical correlation is recommended. No discrete drainable abscess collection . No peritoneal free fluid of free air. Reviewed by: Darian Pena MD on 12/31/2023 3:10 PM PDT Approved by: Darian Pena MD on 12/31/2023 3:10 PM PDT Station ID: [id number]
[2023-12-31 15:43] VITALS: O2SAT 98
[2023-12-31 16:01] VITALS: BP 146/73
== END 2023-12-31 16:04 | disposition home or self-care (01) ==
LOC: ED 12:51
DX: K52.9 Noninfective gastroenteritis and colitis, unspecified (principal)
CPT/HCPCS: 36415; 74177; 80053; 81001; 83690; 85025; 96374; 99284; Q9967; 81003; 87086; 87507

== ENCOUNTER 2024-02-16 13:55 | Outpatient (CLI) | payer MEDICARE, OTHER | END 2024-02-16 22:14 | disposition short-term general hospital (02) | LOC: EMS 13:55 | DX: R51.9 Headache, unspecified (principal); R42 Dizziness and giddiness; S09.90XA Unspecified injury of head, initial encounter; W18.39XA Other fall on same level, initial encounter; Y92.003 Bedroom of unspecified non-institutional (private) residence as the place of occurrence of the external cause | CPT/HCPCS: A0425; A0427 ==